=== PATIENT | male | born 1950 | race Caucasian/White ===

== ENCOUNTER 2016-11-18 08:15 | Emergency (ER) | payer OTHER ==
[2016-11-18] MEDS ORDERED: ASPIRIN 81 MG TAB.CHEW PO ONE (08:44)
[2016-11-18] MEDS ORDERED: ASPIRIN 81 MG TAB.CHEW ONE (08:44)
[2016-11-18] MEDS ORDERED: NITROGLYCERIN 0.4 MG/TAB BTL SL ONE ×2 (08:44→09:40)
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
[2016-11-18 09:09] LABS: Hematocrit 36.7 % (42.0-52.0); Mean Cell Volume 80.8 fl (78-100); Mean Corpuscular Hemoglobin 26.4 pg (27-31); Mean Corpuscular Hgb Conc 32.7 g/dl (32-36); Mean Platelet Volume 8.6 fl (6.0-9.5); Neutrophil % 72.3 % (42-75.0); Platelet Count 187 K/mm3 (150-450); Red Blood Count 4.54 M/mm3 (4.7-6.0); White Blood Count 9.8 K/mm3 (4.0-10.5)
--- OUTSIDE RECORDS SUMMARY | 2016-11-18 09:13 | XMS REPORT | Continuity of Care Document ---
:1950 Author Organization [email or web address] [place] [address] Care Team Providers Name Role Phone Unavailable Primary Care Provider Unavailable Source Comments This disclosure is being made pursuant to the [employer] program and maynot contain all information available regarding this patient.[email or web address] Active Allergies and Adverse Reactions No Known Allergies Current Medications Be aware that medications may not be up to date as of this document. Alwaysverify current medications with the patient. Prescription Sig. Disp. Refills Start Date End Date Status LANTUS SOLOSTAR 100 Inject 60 Units 2 05/06/2015 Active UNIT/ML SOPN injection - into the skin pen daily. HUMALOG KWIKPEN 100 30 Units. 4 05/06/2015 Active UNIT/ML SOPN injection - pen BD PEN NEEDLE ROMELIA U/F 4 05/04/2015 Active 32G X 4 MM MISC metformin (GLUCOPHAGE) 1,000 mg every 1 04/28/2015 Active 1000 MG tablet 12 (twelve) hours. pantoprazole (PROTONIX) Take 40 mg by Active 40 MG tablet mouth daily. furosemide (LASIX) 20 MG Take 20 mg by Active tablet mouth twice a week. metoprolol (TOPROL-XL) Take 200 mg by Active 200 MG 24 hr tablet mouth daily. ferrous sulfate 325 (65 Take 325 mg by Active FE) MG EC tablet mouth daily. lisinopril-hydrochlorothi Take 1 tablet Active azide by mouth 2 (PRINZIDE,ZESTORETIC) (two) times 20-12.5 MG per tablet daily. clopidogrel (PLAVIX) 75 Take 75 mg by Active MG tablet mouth daily. Multiple Vitamin (MULTI Take 1 tablet Active VITAMIN DAILY) TABS by mouth daily. Coenzyme Q10 (COQ10 PO) Take by mouth. Active Cholecalciferol (VITAMIN Take by mouth. Active D3) 3000 UNITS TABS Nutritional Supplements Take by mouth. Active (OSTEO ADVANCE PO) sulfamethoxazole-trimetho Take 1 tablet 0 07/21/2015 Active prim (BACTRIM DS) 800-160 by mouth 2 MG per tablet (two) times daily. TRULICITY 0.75 MG/0.5ML INJECT 1.5 MG 4 12/04/2015 Active SOPN injection WEEKLY traMADol (ULTRAM) 50 MG Take 50 mg by Active tablet mouth every 8 (eight) hours as needed for Pain. dicyclomine (BENTYL) 20 TAKE 1 TABLET 90 tablet 0 04/03/2016 Active MG tablet BY MOUTH 3 (THREE) TIMES DAILY BEFORE MEALS. Active Problems Problem Noted Date Multiple gastric polyps 04/26/2016 Cochran's esophagus without dysplasia 04/26/2016 Diarrhea 06/21/2015 Most Recent Encounters Date Type Specialty Providers Description 08/22/2016 Data Import Social History Tobacco Use Types Packs/Day Years Used Date Never Smoker Smokeless Tobacco: Never Used Alcohol Use Drinks/Week oz/Week Comments No 0 Standard drinks or equivalent 0.0 Last Filed Vital Signs Vital Sign Reading Time Taken Blood Pressure 140/82 04/15/2016 9:11 AM CDT Pulse 80 04/15/2016 9:11 AM CDT Temperature 35 C (95 F) 04/15/2016 9:11 AM CDT Respiratory Rate - - Height 1.778 m (5' 10") 04/15/2016 9:11 AM CDT Weight 152.227 kg (335 lb 9.6 oz) 04/15/2016 9:11 AM CDT Body Mass Index 48.15 04/15/2016 9:11 AM CDT Oxygen Saturation - - Plan of Care Patient Goal Type Goal Result Component HEMOGLOBIN A1C below 7.0 Health Maintenance Due Date Last Done Comments Lab-Lipids 1950 LAB-HgA1C 1956 Eye (Ophthalmology) Exam 1961 Foot Exam 1961 Lab-Urine Microalbumin 1961 Hepatitis C Screening 1969 Tetanus/Pertussis (1 - Tdap) 1970 Well Adult Visit 2001 Zoster Vaccine 60+ 2011 Influenza Immunization (#1) 2016 Pneumococcal Low/Medium Risk 2016 65+ (1 of 2 - PCV13) Colonoscopy 08/17/2018 08/17/2015, 08/17/2015 EGD Surveillance 04/09/2019 04/09/2016, Additional history exists 04/09/2016, 08/17/2015 Results from Last 3 Months Not on file
[2016-11-18 09:21] LABS: Prothrombin Time (Patient) 10.8 Seconds (9.4-11.4)
[2016-11-18 09:23] LABS: INR 1.04 INR (0.90-1.10); Partial Thrombolplastin Time 26.6 Seconds (24-32)
[2016-11-18 09:30] LABS: Albumin * 3.5 gm/dl (3.4-5.0); Anion Gap 16.2 mmol/L (6.8-13.8); BUN/Creatinine Ratio 14.1 (9.0-21.6); Bilirubin, Total 0.2 mg/dL (0.0-1.1); Ca. Corrected For Albumin 9.1 mg/dL (8.4-10.2); Carbon Dioxide 25.2 mmol/L (24-32.6); Potassium 3.4 mmol/L (3.4-4.6); Total Protein 7.4 gm/dL (6.2-8.2); Troponin I 0.699 ng/ml (0.00-0.10)
[2016-11-18] MEDS ORDERED: HEPARIN SODIUM,PORCINE/D5W 25,000 UNITS/500 ML BAG IV ONE (09:50)
[2016-11-18] MEDS ORDERED: HEPARIN SODIUM,PORCINE 5,000 UNITS/ML VIAL ONE (09:50)
[2016-11-18] MEDS ORDERED: NITROGLYCERIN IN 5 % DEXTROSE 50 MG/250 ML INFUS..BTL IV PRN (09:56)
[2016-11-18] MEDS ORDERED: HEPARIN SODIUM,PORCINE 5,000 UNITS/ML VIAL IV ONE (09:56)
[2016-11-18] MEDS ORDERED: MORPHINE SULFATE 2 MG/ML DISP.SYRIN IV PRN (09:58)
[2016-11-18] MEDS ORDERED: HEPARIN SODIUM,PORCINE/D5W 25,000 UNITS/500 ML BAG IV SCH (10:00)
[2016-11-18] MEDS ORDERED: MORPHINE SULFATE 2 MG/ML DISP.SYRIN ONE (10:19)
[2016-11-18] MEDS ORDERED: MORPHINE SULFATE 2 MG/ML DISP.SYRIN IV ONE (10:20)
[2016-11-18 10:41] VITALS: BP 137/64
== END 2016-11-18 10:28 | disposition short-term general hospital (02) ==
LOC: ER 08:15
DX: I21.4 Non-ST elevation (NSTEMI) myocardial infarction (principal); E11.9 Type 2 diabetes mellitus without complications; Z79.4 Long term (current) use of insulin; K21.9 Gastro-esophageal reflux disease without esophagitis; I10 Essential (primary) hypertension